=== PATIENT | female | born 1950 | race Caucasian/White ===

== ENCOUNTER 2019-12-30 19:05 | Emergency (ER) | payer BC ==
[2019-12-30] MEDS ORDERED: Aspirin 81 MG Tab.Chew PO ONE (19:36)
--- NOTE | 2019-12-30 19:41 | EDM.PDOC ---
ED HPI GENERAL MEDICAL PROBLEM - General Chief Complaint: Cardiovascular Problem Stated Complaint: sharp pains in arm Time Seen by Provider: 12/30/19 19:38 Source of Information: Reports: Patient History Limitations: Reports: No Limitations - History of Present Illness INITIAL COMMENTS - FREE TEXT/NARRATIVE: Complains of left upper chest pain radiating to left upper back, left arm and left side of abdomen. Pain described as sharp in the chest and fullness in the abdomen. Onset @1830 today. Denies SOB or nausea. Past medical history includes HTN and hyperlipidemia, no prior h/o CAD. Family history positive for CAD. 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 Onset Date: 12/30/19 Onset Time: 18:30 Location: Reports: Chest, Abdomen Quality: Reports: Sharp Severity: Moderate - Related Data Allergies Allergy/AdvReac Type Severity Reaction Status Date / Time nickel Allergy Rash Verified 12/30/19 21:14 Penicillins Allergy Hives Verified 12/30/19 21:14 Home Meds: Home Meds .Bariatric Vitamins 1 cap PO BEDTIME 12/30/19 [History] .Bariatric Vitamins 2 cap PO DAILY 12/30/19 [History] .Calcium 1 tab PO BID 12/30/19 [History] .Miralax 1 dose PO Q48H PRN 12/30/19 [History] .Stool Softener 1 tab PO Q48H PRN 12/30/19 [History] .Vitamin B 12 1 tab PO DAILY 12/30/19 [History] Pravastatin Sodium [Pravastatin (Pravachol)] 40 mg PO DAILY 12/30/19 [History] allopurinoL [Zyloprim] 100 mg PO DAILY 12/30/19 [History] amLODIPine Besylate [Amlodipine Besylate] 5 mg PO BID 12/30/19 [History] Past Medical History Cardiovascular History: Reports: High Cholesterol, Hypertension. Denies: CAD - Past Surgical History GI Surgical History: Reports: Bariatric Procedure (Lc en Y Gastric bypass 2018 @[facility]) Social & Family History - Tobacco Use Tobacco Use Within Last Twelve Months: No - Alcohol Use Alcohol Use History: No ED ROS GENERAL - Review of Systems Review Of Systems: Comprehensive ROS is negative, except as noted in HPI. ED EXAM, GENERAL - Physical Exam Exam: See Below Exam Limited By: No Limitations General Appearance: Alert, WD/WN, No Apparent Distress Nose: Normal Inspection Throat/Mouth: No Airway Compromise Head: Atraumatic, Normocephalic Neck: Full Range of Motion Respiratory/Chest: No Respiratory Distress, Lungs Clear, Normal Breath Sounds Cardiovascular: Regular Rate, Rhythm, No Murmur, Other (left upper chest wall tenderness) GI/Abdominal: Normal Bowel Sounds, Soft, No Distention, Tender (epigastric) Back Exam: Other (left upper back tenderness) Extremities: Normal Range of Motion Neurological: Alert, Oriented, Normal Cognition Psychiatric: Normal Affect, Normal Mood EKG INTERPRETATION EKG Date: 12/30/19 Time: 19:27 Rhythm: NSR Rate (Beats/Min): 68 [place]: Normal P-Wave: Present QRS: Normal ST-T: Normal QT: Normal EKG Interpretation Comments: Frequent PVCs Course - Vital Signs Last Recorded V/S: Last Vital Signs Temp 36.6 C 12/30/19 19:10 Pulse 77 12/30/19 19:10 Resp 18 12/30/19 19:10 BP 129/67 12/30/19 20:30 Pulse Ox 99 12/30/19 19:10 - Orders/Labs/Meds Orders: Active Orders 24 hr Category Date Time Status EKG Documentation Completion [RC] ASDIRECTED Care 12/30/19 19:37 Active Abdomen Pelvis w Cont [CT] Stat Exams 12/30/19 21:37 Taken Chest 2V [CR] Stat Exams 12/30/19 19:41 Taken Ciprofloxacin in D5W [Cipro in D5W 400 MG/200 ML] 400 Med 12/30/19 21:29 Active mg Premix Bag 1 bag IV ONETIME Lactated Ringers @ 100 MLS/HR(1000ml) Med 12/30/19 22:30 Ordered Lactated Ringers [Ringers, Lactated] 1,000 ml IV ASDIRECTED Sodium Chloride 0.9% [Saline Flush] Med 12/30/19 19:36 Active 10 ml FLUSH ASDIRECTED PRN metroNIDAZOLE/Normal Saline [Flagyl 500 MG in NS 100 ML Med 12/30/19 21:29 Active ] 500 mg Premix Bag 1 bag IV ONETIME Saline Lock Insert [OM.PC] Routine Oth 12/30/19 19:36 Ordered EKG 12 Lead [EK] Stat Ther 12/30/19 19:36 Ordered Medication Orders Ciprofloxacin/Dextrose 400 mg/ (Premix) 200 mls @ 200 mls/hr IV ONETIME ONE Stop: 12/30/19 22:28 Metronidazole 500 mg/ Premix 100 mls @ 100 mls/hr IV ONETIME ONE Stop: 12/30/19 22:28 Sodium Chloride (Saline Flush) 10 ml FLUSH ASDIRECTED PRN PRN Reason: Keep Vein Open Labs: Laboratory Tests 12/30/19 12/30/19 12/30/19 Range/Units 20:05 20:25 20:25 WBC 9.4 (4.5-12.0) X10-3/uL RBC 4.41 (3.23-5.20) x10(6)uL Hgb 13.4 (11.5-15.5) g/dL Hct 40.4 (30.0-51.3) % MCV 91.5 (80-96) fL MCH 30.3 (27.7-33.6) pg MCHC 33.2 (32.2-35.4) g/dL RDW 12.9 (11.5-15.5) % Plt Count 174 (125-369) X10(3)uL MPV 8.9 (7.4-10.4) fL Add Manual Diff Yes Neutrophils % (Manual) 74 (46-82) % Lymphocytes % (Manual) 19 (13-37) % Monocytes % (Manual) 5 (4-12) % Eosinophils % (Manual) 2 (0-5) % PT (9.0-11.1) sec INR (1.00-1.24) APTT 26.1 (24.4-33.2) SECONDS D-Dimer, Quantitative 0.71 H (0.0-0.59) mg/LFEU Sodium (135-145) mmol/L Potassium (3.5-5.3) mmol/L Chloride (100-110) mmol/L Carbon Dioxide (21-32) mmol/L BUN (7-18) mg/dL Creatinine (0.55-1.02) mg/dL Est Cr Clr Drug Dosing Estimated GFR (MDRD) (>60) BUN/Creatinine Ratio (9-20) Glucose (80-116) mg/dL Calcium (8.6-10.2) mg/dL Magnesium (1.8-2.5) mg/dL Total Bilirubin (0.1-1.3) mg/dL AST (5-25) IU/L ALT (12-36) U/L Alkaline Phosphatase (56-112) IU/L Troponin I (4.0-60.3) pg/mL Total Protein (6.0-8.0) g/dL Albumin (3.2-4.6) g/dL Globulin g/dL Albumin/Globulin Ratio Lipase (73-393) U/L Urine Color Yellow (YELLOW) Urine Appearance Clear (CLEAR) Urine pH 7.0 H (5.0-6.5) Ur Specific [place] 1.015 (1.010-1.025) Urine Protein 30 H (NEGATIVE) mg/dL Urine Glucose (UA) Normal (NORMAL) mg/dL Urine Ketones Negative (NEGATIVE) mg/dL Urine Occult Blood Negative (NEGATIVE) Urine Nitrite Negative (NEGATIVE) Urine Bilirubin Negative (NEGATIVE) Urine Urobilinogen 4 H (NEGATIVE) mg/dL Ur Leukocyte Esterase Small H (NEGATIVE) Urine RBC 0-5 (0-5) Urine WBC 0-5 (0-5) Ur Squamous Epith Cells Occasional (NS,R,O) Urine Bacteria Rare H (NS) 12/30/19 12/30/19 12/30/19 Range/Units 20:25 20:25 20:25 WBC (4.5-12.0) X10-3/uL RBC (3.23-5.20) x10(6)uL Hgb (11.5-15.5) g/dL Hct (30.0-51.3) % MCV (80-96) fL MCH (27.7-33.6) pg MCHC (32.2-35.4) g/dL RDW (11.5-15.5) % Plt Count (125-369) X10(3)uL MPV (7.4-10.4) fL Add Manual Diff Neutrophils % (Manual) (46-82) % Lymphocytes % (Manual) (13-37) % Monocytes % (Manual) (4-12) % Eosinophils % (Manual) (0-5) % PT 10.1 (9.0-11.1) sec INR 1.04 (1.00-1.24) APTT (24.4-33.2) SECONDS D-Dimer, Quantitative (0.0-0.59) mg/LFEU Sodium 142 (135-145) mmol/L Potassium 4.2 (3.5-5.3) mmol/L Chloride 105 (100-110) mmol/L Carbon Dioxide 27 (21-32) mmol/L BUN 25 H (7-18) mg/dL Creatinine 0.7 (0.55-1.02) mg/dL Est Cr Clr Drug Dosing TNP Estimated GFR (MDRD) > 60 (>60) BUN/Creatinine Ratio 35.7 H (9-20) Glucose 98 (80-116) mg/dL Calcium 9.2 (8.6-10.2) mg/dL Magnesium (1.8-2.5) mg/dL Total Bilirubin 0.6 (0.1-1.3) mg/dL AST 48 H (5-25) IU/L ALT 60 H (12-36) U/L Alkaline Phosphatase 129 H (56-112) IU/L Troponin I 7.8 (4.0-60.3) pg/mL Total Protein 7.2 (6.0-8.0) g/dL Albumin 3.6 (3.2-4.6) g/dL Globulin 3.6 g/dL Albumin/Globulin Ratio 1.0 Lipase 1128 H (73-393) U/L Urine Color (YELLOW) Urine Appearance (CLEAR) Urine pH (5.0-6.5) Ur Specific [place] (1.010-1.025) Urine Protein (NEGATIVE) mg/dL Urine Glucose (UA) (NORMAL) mg/dL Urine Ketones (NEGATIVE) mg/dL Urine Occult Blood (NEGATIVE) Urine Nitrite (NEGATIVE) Urine Bilirubin (NEGATIVE) Urine Urobilinogen (NEGATIVE) mg/dL Ur Leukocyte Esterase (NEGATIVE) Urine RBC (0-5) Urine WBC (0-5) Ur Squamous Epith Cells (NS,R,O) Urine Bacteria (NS) 12/30/19 Range/Units 20:25 WBC (4.5-12.0) X10-3/uL RBC (3.23-5.20) x10(6)uL Hgb (11.5-15.5) g/dL Hct (30.0-51.3) % MCV (80-96) fL MCH (27.7-33.6) pg MCHC (32.2-35.4) g/dL RDW (11.5-15.5) % Plt Count (125-369) X10(3)uL MPV (7.4-10.4) fL Add Manual Diff Neutrophils % (Manual) (46-82) % Lymphocytes % (Manual) (13-37) % Monocytes % (Manual) (4-12) % Eosinophils % (Manual) (0-5) % PT (9.0-11.1) sec INR (1.00-1.24) APTT (24.4-33.2) SECONDS D-Dimer, Quantitative (0.0-0.59) mg/LFEU Sodium (135-145) mmol/L Potassium (3.5-5.3) mmol/L Chloride (100-110) mmol/L Carbon Dioxide (21-32) mmol/L BUN (7-18) mg/dL Creatinine (0.55-1.02) mg/dL Est Cr Clr Drug Dosing Estimated GFR (MDRD) (>60) BUN/Creatinine Ratio (9-20) Glucose (80-116) mg/dL Calcium (8.6-10.2) mg/dL Magnesium 1.9 (1.8-2.5) mg/dL Total Bilirubin (0.1-1.3) mg/dL AST (5-25) IU/L ALT (12-36) U/L Alkaline Phosphatase (56-112) IU/L Troponin I (4.0-60.3) pg/mL Total Protein (6.0-8.0) g/dL Albumin (3.2-4.6) g/dL Globulin g/dL Albumin/Globulin Ratio Lipase (73-393) U/L Urine Color (YELLOW) Urine Appearance (CLEAR) Urine pH (5.0-6.5) Ur Specific [place] (1.010-1.025) Urine Protein (NEGATIVE) mg/dL Urine Glucose (UA) (NORMAL) mg/dL Urine Ketones (NEGATIVE) mg/dL Urine Occult Blood (NEGATIVE) Urine Nitrite (NEGATIVE) Urine Bilirubin (NEGATIVE) Urine Urobilinogen (NEGATIVE) mg/dL Ur Leukocyte Esterase (NEGATIVE) Urine RBC (0-5) Urine WBC (0-5) Ur Squamous Epith Cells (NS,R,O) Urine Bacteria (NS) Meds: Medications Generic Name Dose Route Start Last Admin Trade Name Freq PRN Reason Stop Dose Admin Ciprofloxacin/Dextrose 400 mg/ 200 mls @ 200 mls/hr 12/30/19 21:29 Premix IV 12/30/19 22:28 ONETIME ONE Metronidazole 500 mg/ Premix 100 mls @ 100 mls/hr 12/30/19 21:29 IV 12/30/19 22:28 ONETIME ONE Sodium Chloride 10 ml 12/30/19 19:36 Saline Flush FLUSH ASDIRECTED PRN Keep Vein Open Discontinued Medications Generic Name Dose Route Start Last Admin Trade Name Freq PRN Reason Stop Dose Admin Aspirin 324 mg 12/30/19 19:36 12/30/19 19:46 Aspirin PO 12/30/19 19:37 324 mg ONETIME ONE Administration Iopamidol 100 ml 12/30/19 21:17 12/30/19 21:24 Isovue-370 (76%) IV 12/30/19 21:18 98 ml ONETIME ONE Administration Nitroglycerin 0.4 mg 12/30/19 19:45 12/30/19 20:30 Nitrostat SL 12/30/19 19:46 0.4 mg ONETIME ONE Administration Pantoprazole Sodium 40 mg 12/30/19 22:20 Protonix Iv IVPUSH 12/30/19 22:21 ONETIME ONE - Radiology Interpretation Free Text/Narrative:: CXR: Cardiomegaly without other changes for CHF. [place] of gas beneath the left hemidiaphragm, presence of pneumoperitoneum difficult to exclude. CT Abd/Pelvis w/ IV contrast: Imaging suggests visceral perforation given presence of extraluminal gas and pneumoperitoneum. mesenteric edema and pockets of gas are intimate to the proximal gastrojejunostomy anastamosis suggesting this may represent site of perforation. Small amount of free fluid identified to track down into the pelvis. No well-formed abscess is seen. No bowel obstruction. Moderate quantity stool throughout the colon suggests constipation exists. - Re-Assessments/Exams Free Text/Narrative Re-Assessment/Exam: 12/30/19 21:13 Chest pain improved from 8/10 to 3/10 after NTG SL x 2. 12/30/19 22:30 Dr. Noble (Bariatric Surgeon) accepts patient for transfer to [facility] ED. Will transport by ALS ground. Departure - Departure Time of Disposition: 22:31 Disposition: DC/Tfer to Acute Hospital 02 Reason for Transfer *Q: Other Condition: Fair Clinical Impression: Pneumoperitoneum Chest pain Qualifiers: Chest pain type: unspecified Qualified Code(s): R07.9 - Chest pain, unspecified Referrals: Sandra Johnson NP [Primary Care Provider] - Forms: ED Department Discharge Sepsis Event Note - Focused Exam Vital Signs: Vital Signs Temp Pulse Resp BP BP Pulse Ox 12/30/19 20:30 129/67 12/30/19 20:16 155/69 H 12/30/19 19:10 36.6 C 77 18 176/84 H 99 Date Exam was Performed: 12/30/19 Time Exam was Performed: 22:27 - My Orders Last 24 Hours: My Active Orders 12/30/19 19:36 Sodium Chloride 0.9% [Saline Flush] 10 ml FLUSH ASDIRECTED PRN Saline Lock Insert [OM.PC] Routine EKG 12 Lead [EK] Stat 12/30/19 19:37 EKG Documentation Completion [RC] ASDIRECTED 12/30/19 19:41 Chest 2V [CR] Stat 12/30/19 21:29 Ciprofloxacin in D5W [Cipro in D5W 400 MG/200 ML] 400 mg Premix Bag 1 bag IV ONETIME metroNIDAZOLE/Normal Saline [Flagyl 500 MG in NS 100 ML] 500 mg Premix Bag 1 bag IV ONETIME 12/30/19 21:37 Abdomen Pelvis w Cont [CT] Stat 12/30/19 22:30 Lactated Ringers @ 100 MLS/HR(1000ml) Lactated Ringers [Ringers, Lactated] 1, 000 ml IV ASDIRECTED - Assessment/Plan Last 24 Hours: My Active Orders 12/30/19 19:36 Sodium Chloride 0.9% [Saline Flush] 10 ml FLUSH ASDIRECTED PRN Saline Lock Insert [OM.PC] Routine EKG 12 Lead [EK] Stat 12/30/19 19:37 EKG Documentation Completion [RC] ASDIRECTED 12/30/19 19:41 Chest 2V [CR] Stat 12/30/19 21:29 Ciprofloxacin in D5W [Cipro in D5W 400 MG/200 ML] 400 mg Premix Bag 1 bag IV ONETIME metroNIDAZOLE/Normal Saline [Flagyl 500 MG in NS 100 ML] 500 mg Premix Bag 1 bag IV ONETIME 12/30/19 21:37 Abdomen Pelvis w Cont [CT] Stat 12/30/19 22:30 Lactated Ringers @ 100 MLS/HR(1000ml) Lactated Ringers [Ringers, Lactated] 1, 000 ml IV ASDIRECTED
[2019-12-30] MEDS: Nitroglycerin 0.4 MG Tab.SL SL ONE ×2 (20:16→20:30)
[2019-12-30] MEDS ORDERED: Iopamidol 755 Mg/ML 100 ML Bottle IV ONE (21:17)
[2019-12-30] MEDS ORDERED: Ciprofloxacin in D5W 400 MG in Premix Bag 1 BAG IV ONE ×2 (21:29)
[2019-12-30] MEDS ORDERED: metroNIDAZOLE/Normal Saline 500 MG in Premix Bag 1 BAG IV ONE (21:29)
[2019-12-30] MEDS ORDERED: Pantoprazole 40 MG Vial IVPUSH ONE (22:20)
[2019-12-30] MEDS ORDERED: Lactated Ringers 1,000 ML IV SCH (22:30)
[2019-12-30] MEDS: Sodium Chloride 0.9% 10 ML Syringe FLUSH PRN (22:35)
[2019-12-31] MEDS: Sodium Chloride 0.9% 10 ML Syringe FLUSH PRN (00:15)
== END 2019-12-31 00:20 ==
LOC: FB.ED 19:05
DX: K66.8 Other specified disorders of peritoneum (principal); R07.9 Chest pain, unspecified; I10 Essential (primary) hypertension; E78.5 Hyperlipidemia, unspecified; Z79.899 Other long term (current) drug therapy; Z98.84 Bariatric surgery status; Z88.0 Allergy status to penicillin; Z88.8 Allergy status to other drugs, medicaments and biological substances
CPT/HCPCS: 36415; 71046; 74177; 80053; 81001; 83690; 83735; 84484; 85025; 85379; 85610; 85730; 93005; 96365; 96368; 96375; 99285; A9270; C9113; J0744; J3490; J7120; Q9967

== ENCOUNTER 2021-12-09 09:27 | Emergency (ER) | payer BC, MEDICARE ==
[2021-12-09] MEDS ORDERED: Sodium Chloride 0.9% 10 ML Syringe FLUSH PRN (09:50)
[2021-12-09] MEDS ORDERED: Sodium Chloride 0.9% 1,000 ML IV ONE (09:55)
[2021-12-09] MEDS ORDERED: Morphine 4 MG/ML VIAL IVPUSH ONE (09:55)
[2021-12-09] MEDS ORDERED: Ondansetron 4 MG/2 ML SDV IVPUSH ONE (09:55)
[2021-12-09] MEDS ORDERED: Iopamidol 755 Mg/ML 100 ML Bottle IV ONE (11:05)
[2021-12-09] MEDS ORDERED: Pantoprazole 40 MG Vial IVPUSH ONE (12:16)
[2021-12-09] MEDS ORDERED: Sodium Chloride 0.9% 1,000 ML IV SCH (12:30)
[2021-12-09] MEDS ORDERED: cefTRIAXone 1 GM in Sodium Chloride 0.9% 50 ML IV ONE (12:34)
[2021-12-09] MEDS ORDERED: metroNIDAZOLE/Normal Saline 500 MG in Premix Bag 1 BAG IV ONE (12:34)
[2021-12-09] MEDS ORDERED: cefTRIAXone 1 GM Vial IVPUSH ONE (12:45)
== END 2021-12-09 15:25 ==
LOC: FB.ED 09:27
DX: K63.1 Perforation of intestine (nontraumatic) (principal); K66.8 Other specified disorders of peritoneum; I10 Essential (primary) hypertension; Z20.822 Contact with and (suspected) exposure to COVID-19; Z88.8 Allergy status to other drugs, medicaments and biological substances; Z79.899 Other long term (current) drug therapy
CPT/HCPCS: 36415; 71045; 71275; 74174; 80053; 81001; 83690; 83735; 84484; 85025; 87635; 93005; 96365; 96375; 99285; C9113; J0696; J2270; J2405; J3490; J7030; Q9967; U0002

== ENCOUNTER 2023-10-21 06:15 | Day surgery (SDC) | payer MEDICARE, BC ==
[~2023-10-21 06:15] MED LIST: Lactated Ringers 1,000 ML IV SCH; Sodium Chloride 0.9% 10 ML Syringe FLUSH PRN
[2023-10-21] MEDS ORDERED: Propofol 200 MG/20 ML SDV IV ONE (06:16)
[2023-10-21] MEDS ORDERED: Glycopyrrolate 0.2 MG/ML 5 ML MDV IV ONE (06:16)
[2023-10-21] MEDS ORDERED: Midazolam 1 MG/ML 2 ML SDV IV ONE (06:16)
[2023-10-21] MEDS ORDERED: fentaNYL 100 MCG/2 ML SDV IV ONE (06:16)
[2023-10-21] MEDS ORDERED: Simethicone Drops 40 MG/0.6 ML 30 ML Bottle ONE (08:02)
== END 2023-10-21 10:00 | disposition home or self-care (01) ==
LOC: FB.SDS 06:15
PROVIDERS: ATTEND Surgery
DX: Z12.11 Encounter for screening for malignant neoplasm of colon (principal); D12.6 Benign neoplasm of colon, unspecified; D12.8 Benign neoplasm of rectum; K57.30 Diverticulosis of large intestine without perforation or abscess without bleeding; E11.9 Type 2 diabetes mellitus without complications; I10 Essential (primary) hypertension; E78.2 Mixed hyperlipidemia; E66.01 Morbid (severe) obesity due to excess calories; Z68.41 Body mass index [BMI] 40.0-44.9, adult; Z79.899 Other long term (current) drug therapy; Z88.0 Allergy status to penicillin
CPT/HCPCS: 00811; 88305; 99100; A9270-GY; J2250; J2704; J3010; J3490; J7120